=== PATIENT | male | born 1970 | race Caucasian/White ===

== ENCOUNTER → 2018-01-16 | Outpatient (CLI) | payer OTHER ==
[2018-01-16] MEDS: IOHEXOL 300 MG/ML 100ML VIAL. IV (11:21)
== END | disposition home or self-care (01) ==
LOC: KCIC CT 10:27
DX: R91.8 Other nonspecific abnormal finding of lung field (principal); K76.0 Fatty (change of) liver, not elsewhere classified
CPT/HCPCS: 71260; Q9967

== ENCOUNTER → 2018-03-22 | Outpatient (CLI) | payer OTHER | END | disposition home or self-care (01) | LOC: KCIC US 15:07 | DX: R10.31 Right lower quadrant pain (principal); R59.1 Generalized enlarged lymph nodes | CPT/HCPCS: 76881 ==

== ENCOUNTER → 2018-04-11 | Outpatient (CLI) | payer OTHER ==
[~2018-04-11] MED LIST: CONTRAST GIVEN. MC
[2018-04-11] MEDS: IOHEXOL 300 MG/ML 100ML VIAL. IV (10:15)
[2018-04-11] MEDS: IOHEXOL 240 MG/ML 50ML VIAL. PO (10:15)
== END | disposition home or self-care (01) ==
LOC: CT 10:00
DX: K76.0 Fatty (change of) liver, not elsewhere classified (principal); I10 Essential (primary) hypertension
CPT/HCPCS: 74177; Q9966; Q9967

== ENCOUNTER 2019-07-27 17:15 | Inpatient (IN) | payer OTHER ==
[~2019-07-27] VITALS: Ht 177.8 cm; Wt 104.8 kg
[~2019-07-27 17:15] MED LIST changes: +AMLO10TA8 PO; +AMOX500C PO; +ASPI-482 PO; +ASPI1TAB31 PO; +CHOL500016 PO; +CIPR500T94 PO; -CONTRAST GIVEN. MC; +HYDR-2761 PO; +IBUPROFEN PO; +LISI1TAB19 PO; +PHEN-444 PO; +SIMV10TA3 PO; +UBID100C26 PO
[2019-07-27] MEDS ORDERED: IV NORMAL SALINE 1000ML BAG 1,000 ML IV SCH (17:29)
[2019-07-27] MEDS: fentaNYL PF VIAL 100 MCG/2 ML VIAL IV PRN ×7 (17:43→23:09)
--- NOTE | 2019-07-27 17:50 | RAD ---
PORTABLE CHEST 1V Clinical indications: Fever. COMPARISON: None available. Findings: No acute lung infiltrate or pleural effusion or pulmonary edema or lung mass or pneumothorax is seen. The heart size, pulmonary vasculature, mediastinum and both duane are unremarkable. Impression: No acute radiographic abnormality is seen. Electronically signed by: Nick Stewart MD (07/27/2019 5:47 PM) [facility]
[2019-07-27 17:53] LABS: BASO % 0 % (0-3); EOS % 0 % (0-3); HEMATOCRIT 46.5 % (39.0-53.0); HEMOGLOBIN 16.1 g/dL (13.0-17.5); LYMPH # 0.5 x10^3/uL (1.0-4.8); LYMPH % 4 % (24-48); MEAN CORPUSCULAR HEMOGLOBIN 31 pg (25-35); MEAN CORPUSCULAR HGB CONC 35 g/dL (31-37); MEAN CORPUSCULAR VOLUME 90 fL (79-100); MONO # 0.9 x10^3/uL (0.0-1.1); MONO % 7 % (0-9); NEUT # 10.6 x10^3/uL (1.8-7.7); NEUT % 88 % (31-73); PLATELET COUNT 324 x10^3/uL (140-400); RED CELL DISTRIBUTION WIDTH 13.5 % (11.5-14.5)
--- NOTE | 2019-07-27 17:57 | PHYS DOC ---
Past Medical History Past Medical History: Kidney Infection Additional Past Medical Histor: BACTERIAL SPINAL MENNIGITIS,MULTIPLE KIDNEY STONES Past Surgical History: Appendectomy Additional Past Surgical Histo: MULTIPLE KIDNEY STONES REMOVED SURGICALLY Alcohol Use: Occasionally Drug Use: None Adult General Chief Complaint Chief Complaint: DIZZY/LIGHT HEADED HPI HPI Patient is a 49 year old male who presents with this morning at 9:00 began feeling very dizzy, headache, nauseated, slight left-sided chest pain, fever. Patient is 15 days out from a gastric sleeve surgery was performed at [facility]. Patient states his urine is very dark and he has not been urinating a lot. Patient denies pain with urination. Patient states that he is wondering if he has a kidney stone stuck in the left ureter. Patient states he has many kidney stones. Patient has 5 incisions to his abdomen from the surgery that was done laparoscopically. Decisions have approximated edges and are together and there is no redness, swelling, drainage. Patient states he has pain at a 9 out of 10 in his left lower abdomen/pelvic area. Review of Systems Review of Systems Constitutional: fever or chills [] GI: LLQ abdominal pain, nausea, denies vomiting, bloody stools or diarrhea [] All other systems were reviewed and found to be within normal limits, except as documented in this note. Current Medications Current Medications Current Medications Medications (Trade) Dose Ordered Sig/Naldo Start Time Stop Time Status Last Admin Dose Admin Acetaminophen (Tylenol) 500 mg 1X ONCE 07/27/19 18:00 07/27/19 18:01 DC 07/27/19 18:19 500 MG Ceftriaxone Sodium (Rocephin) 1 gm 1X ONCE 07/27/19 19:00 07/27/19 19:02 DC 07/27/19 19:26 1 GM Fentanyl Citrate (Fentanyl 2ml Vial) 50 mcg PRN Q15MIN PRN 07/27/19 17:30 07/28/19 17:29 07/27/19 19:35 50 MCG Ondansetron HCl (Zofran) 4 mg 1X ONCE 07/27/19 18:30 07/27/19 18:31 DC 07/27/19 18:26 4 MG Sodium Chloride 1,000 ml @ 1,000 mls/hr 1X ONCE 07/27/19 19:00 07/27/19 19:59 07/27/19 19:25 1,000 MLS/HR Allergies Allergies Allergies Coded Allergies Type Severity Reaction Last Updated Verified Sulfa (Sulfonamide Antibiotics) Allergy Intermediate rash,itching on the arm,fever symptoms 05/28/15 Yes prochlorperazine Adverse Reaction Severe SEVERE VOMITTING 05/28/15 Yes Physical Exam Physical Exam Constitutional: Well developed, well nourished, no acute distress, non-toxic appearance. [] Eyes: PERRLA, EOMI, conjunctiva normal, no discharge. [] Cardiovascular:Heart rate regular rhythm, no murmur [] Lungs & Thorax: Bilateral breath sounds clear to auscultation [] Abdomen: Bowel sounds normal, soft, no tenderness, no masses, no pulsatile masses. [] Skin: Warm, dry, no erythema, no rash. [] Back: No tenderness, no CVA tenderness. [] Extremities: No tenderness, no cyanosis, no clubbing, ROM intact, no edema. [] Neurologic: Alert and oriented X 3, normal motor function, normal sensory function, no focal deficits noted. [] Psychologic: Affect normal, judgement normal, mood normal. [] Current Patient Data Vital Signs Vital Signs Date Time Temp Pulse Resp B/P (MAP) Pulse Ox O2 Delivery O2 Flow Rate FiO2 07/27/19 19:35 20 95 Room Air 07/27/19 17:21 102.2 160 116/76 (89) 102.2 Lab Values Laboratory Tests Test 07/27/19 17:40 07/27/19 17:50 07/27/19 19:00 White Blood Count 12.0 x10^3/uL (4.0-11.0) H Red Blood Count 5.20 x10^6/uL (4.30-5.70) Hemoglobin 16.1 g/dL (13.0-17.5) Hematocrit 46.5 % (39.0-53.0) Mean Corpuscular Volume 90 fL (79-100) Mean Corpuscular Hemoglobin 31 pg (25-35) Mean Corpuscular Hemoglobin Concent 35 g/dL (31-37) Red Cell Distribution Width 13.5 % (11.5-14.5) Platelet Count 324 x10^3/uL (140-400) Neutrophils (%) (Auto) 88 % (31-73) H Lymphocytes (%) (Auto) 4 % (24-48) L Monocytes (%) (Auto) 7 % (0-9) Eosinophils (%) (Auto) 0 % (0-3) Basophils (%) (Auto) 0 % (0-3) Neutrophils # (Auto) 10.6 x10^3/uL (1.8-7.7) H Lymphocytes # (Auto) 0.5 x10^3/uL (1.0-4.8) L Monocytes # (Auto) 0.9 x10^3/uL (0.0-1.1) Eosinophils # (Auto) 0.0 x10^3/uL (0.0-0.7) Basophils # (Auto) 0.0 x10^3/uL (0.0-0.2) Segmented Neutrophils % 76 % (35-66) H Band Neutrophils % 11 % (0-9) H Lymphocytes % 7 % (24-48) L Monocytes % 6 % (0-10) Platelet Estimate Adequate (ADEQUATE) Sodium Level 141 mmol/L (136-145) Potassium Level 3.7 mmol/L (3.5-5.1) Chloride Level 103 mmol/L (98-107) Carbon Dioxide Level 19 mmol/L (21-32) L Anion Gap 19 (6-14) H Blood Urea Nitrogen 11 mg/dL (8-26) Creatinine 1.1 mg/dL (0.7-1.3) Estimated GFR (Cockcroft-Gault) 71.8 BUN/Creatinine Ratio 10 (6-20) Glucose Level 92 mg/dL (70-99) Lactic Acid Level 1.2 mmol/L (0.4-2.0) Calcium Level 9.3 mg/dL (8.5-10.1) Total Bilirubin 0.7 mg/dL (0.2-1.0) Aspartate Amino Transferase (AST) 20 U/L (15-37) Alanine Aminotransferase (ALT) 32 U/L (16-63) Alkaline Phosphatase 63 U/L (46-116) Total Protein 7.6 g/dL (6.4-8.2) Albumin 3.7 g/dL (3.4-5.0) Albumin/Globulin Ratio 0.9 (1.0-1.7) L Urine Collection Type Unknown Urine Color Yellow Urine Clarity Clear Urine pH 5.5 Urine Specific [place] 1.020 Urine Protein Negative mg/dL (NEG-TRACE) Urine Glucose (UA) Negative mg/dL (NEG) Urine Ketones (Stick) >=80 mg/dL (NEG) Urine Blood Small (NEG) Urine Nitrite Negative (NEG) Urine Bilirubin Small (NEG) Urine Urobilinogen Dipstick 0.2 mg/dL (0.2 mg/dL) Urine Leukocyte Esterase Moderate (NEG) Urine RBC 3-5 /HPF (0-2) Urine WBC Tntc /HPF (0-4) Urine Bacteria 0 /HPF (0-FEW) Urine Mucus Marked /LPF Influenza Type A Antigen Negative (NEGATIVE) Influenza Type B Antigen Negative (NEGATIVE) Laboratory Tests 07/27/19 17:40 Laboratory Tests 07/27/19 17:40 EKG EKG Sinus Tachycardia and no STEMI[] Interpretation Time: [address] Cannon Radiology/Procedures Radiology/Procedures [] Impressions: [place] [address] IMAGING REPORT Signed PATIENT: LIZET OJEDA ACCOUNT: [id number] : 1970 LOCATION: ER AGE: 49 SEX: M EXAM STATUS: REG ER ORD. PHYSICIAN: YAMILET CANNON Jr. DO REASON: fever PROCEDURE: PORTABLE CHEST 1V PORTABLE CHEST 1V Clinical indications: Fever. COMPARISON: None available. Findings: No acute lung infiltrate or pleural effusion or pulmonary edema or lung mass or pneumothorax is seen. The heart size, pulmonary vasculature, mediastinum and both duane are unremarkable. Impression: No acute radiographic abnormality is seen. Electronically signed by: Nick Stewart MD (07/27/2019 5:47 PM) [facility] DICTATED and SIGNED BY: NICK STEWART MD DATE: 07/27/19 [address] [id number] IMAGING REPORT Signed PATIENT: LIZET OJEDA ACCOUNT: [id number] : 1970 LOCATION: ER AGE: 49 SEX: M EXAM STATUS: REG ER ORD. PHYSICIAN: COTY BRUCE APRN REASON: kidney stone hx PROCEDURE: CT ABDOMEN PELVIS WO CONTRAST EXAM: CT ABDOMEN/PELVIS WITHOUT CONTRAST. HISTORY: Renal stones. TECHNIQUE: Computed tomography of the abdomen and pelvis was performed without intravenous contrast. COMPARISON: 04/11/2019. FINDINGS: Lung windows through the visualized portions of the bases reveal a 4 mm uncalcified right middle lobe nodule, stable and likely benign. There is minimal dependent atelectasis. Bone windows reveal no suspicious lesions. There is a 2 mm calculus at the left ureterovesical junction. There is no hydronephrosis bilaterally. Multiple additional bilateral renal calculi measure up to 6 mm on the right. A dense mass in the right renal interpolar region measures 2.6 cm. There is mild perinephric stranding on the left. The liver, gallbladder, spleen, adrenal glands and pancreas are unremarkable. There are no pathologically enlarged lymph nodes. There are changes of sleeve gastrectomy. There is no small bowel obstruction. There is no evidence of appendicitis. IMPRESSION: 1. 2 mm left ureterovesical junction calculus with without hydronephrosis. 2. Multiple additional bilateral renal calculi measure up to 6 mm on the right. 3. A dense nodule in the right kidney is unchanged and most likely represents a hemorrhagic or proteinaceous cyst. Sonography could further differentiate cystic from solid lesions if there is persistent concern. *One or more of the following individualized dose reduction techniques were utilized for this examination: 1. Automated exposure control. 2. Adjustment of the mA and/or kV according to patient size. 3. Use of iterative reconstruction technique. Electronically signed by: George Bojorquez MD (07/27/2019 7:35 PM) [facility] DICTATED and SIGNED BY: KRIS BOJORQUEZ MD DATE: 07/27/191934 Course & Med Decision Making Course & Med Decision Making Patient is a 49 year old male who presents with this morning at 9:00 began feeling very dizzy, headache, nauseated, slight left-sided chest pain, fever. Patient is 15 days out from a gastric sleeve surgery was performed at [facility] by Dr. Chris Garg. Patient states his urine is very dark and he has not been urinating a lot. Patient denies pain with urination. Patient states that he is wondering if he has a kidney stone stuck in the left ureter. Patient states he has many kidney stones. Patient has 5 incisions to his abdomen from the surgery that was done laparoscopically. Decisions have approximated edges and are together and there is no redness, swelling, drainage. Patient states he has pain at a 9 out of 10 in his left lower abdomen/pelvic area. There is no tenderness to palpation. Alert and oriented. Skin pink warm and dry. Lungs are clear to auscultation all lobes. Abdomen is soft and nontender. No extremity swelling. Patient is tachycardic and no STEMI. Patient's heart rate is 139. Speaks in full clear sentences. PERRLA. Patient denies shortness of breath, numbness or tingling, visual changes, weaknesses. Patient states that he took 1 Excedrin migraine at 9:00 this morning and he took another at 1500. 1845: Patient states he is feeling better and his headache is better and very tolerable. Patient rates it at a 3 out of 10. Patient has a urinary tract infection of which I have ordered IV Rocephin. I have ordered a second bag of normal saline bolus. CT ABD PELV shows: 1. 2 mm left ureterovesical junction calculus with without hydronephrosis. 2. Multiple additional bilateral renal calculi measure up to 6 mm on the right. 3. A dense nodule in the right kidney is unchanged and most likely represents a hemorrhagic or proteinaceous cyst. Sonography could further differentiate cystic from solid lesions if there is persistent concern. I have spoken to Dr Asher for admission. He states to keep the patient hydrated and keep him on clear liquids. Dragon Disclaimer Dragon Disclaimer This electronic medical record was generated, in whole or in part, using a voice recognition dictation system. Departure Departure Impression: Primary Impression: Kidney stones Additional Impression: Urinary tract infection Disposition: ADMITTED INPATIENT Admitting Physician: Jhon Asher Condition: STABLE Referrals: SALMA DOLAN PA-C (PCP) Problem Qualifiers Additional Impression: Urinary tract infection Urinary tract infection type: site unspecified Hematuria presence: with hematuria Qualified Codes: N39.0 - Urinary tract infection, site not specified; R31.9 - Hematuria, unspecified COTY BRUCE ATTENDANT [employer] Jul 27, 2019 17:57
[2019-07-27] MEDS ORDERED: ACETAMINOPHEN 500 MG TABLET PO ONE ×2 (18:00)
[2019-07-27 18:04] LABS: CALCIUM 9.3 mg/dL (8.5-10.1); CREATININE 1.1 mg/dL (0.7-1.3); GFR 71.8; POTASSIUM 3.7 mmol/L (3.5-5.1)
[2019-07-27 18:10] LABS: ALBUMIN 3.7 g/dL (3.4-5.0); ALBUMIN/GLOBULIN RATIO 0.9 (1.0-1.7); TOTAL BILIRUBIN 0.7 mg/dL (0.2-1.0); TOTAL PROTEIN 7.6 g/dL (6.4-8.2)
[2019-07-27 18:21] LABS: BILIRUBIN,URINE SMALL (NEG); CLARITY,URINE CLEAR; COLOR,URINE YELLOW; NITRITE,URINE NEGATIVE (NEG); PH,URINE 5.5; PROTEIN,URINE NEGATIVE (NEG-TRACE); UROBILINOGEN,URINE 0.2 mg/dL (0.2 mg/dL)
[2019-07-27] MEDS ORDERED: ONDANSETRON PF 4 MG/2 ML VIAL. ONE (18:23)
[2019-07-27] MEDS ORDERED: ONDANSETRON PF 4 MG/2 ML VIAL. IV ONE (18:30)
[2019-07-27 18:48] LABS: BACTERIA,URINE 0 /HPF (0-FEW); WBC,URINE TNTC /HPF (0-4)
[2019-07-27] MEDS ORDERED: IV NORMAL SALINE 1000ML BAG 1,000 ML IV ONE (19:00)
[2019-07-27] MEDS ORDERED: cefTRIAXone IV Push 1 GM VIAL. IVP ONE (19:00)
[2019-07-27 19:38] LABS: INFLUENZA A PATIENT NEGATIVE (NEGATIVE); INFLUENZA B PATIENT NEGATIVE (NEGATIVE)
--- NOTE | 2019-07-27 19:38 | RAD ---
EXAM: CT ABDOMEN/PELVIS WITHOUT CONTRAST. HISTORY: Renal stones. TECHNIQUE: Computed tomography of the abdomen and pelvis was performed without intravenous contrast. COMPARISON: 04/11/2019. FINDINGS: Lung windows through the visualized portions of the bases reveal a 4 mm uncalcified right middle lobe nodule, stable and likely benign. There is minimal dependent atelectasis. Bone windows reveal no suspicious lesions. There is a 2 mm calculus at the left ureterovesical junction. There is no hydronephrosis bilaterally. Multiple additional bilateral renal calculi measure up to 6 mm on the right. A dense mass in the right renal interpolar region measures 2.6 cm. There is mild perinephric stranding on the left. The liver, gallbladder, spleen, adrenal glands and pancreas are unremarkable. There are no pathologically enlarged lymph nodes. There are changes of sleeve gastrectomy. There is no small bowel obstruction. There is no evidence of appendicitis. IMPRESSION: 1. 2 mm left ureterovesical junction calculus with without hydronephrosis. 2. Multiple additional bilateral renal calculi measure up to 6 mm on the right. 3. A dense nodule in the right kidney is unchanged and most likely represents a hemorrhagic or proteinaceous cyst. Sonography could further differentiate cystic from solid lesions if there is persistent concern. *One or more of the following individualized dose reduction techniques were utilized for this examination: 1. Automated exposure control. 2. Adjustment of the mA and/or kV according to patient size. 3. Use of iterative reconstruction technique. Electronically signed by: George Bojorquez MD (07/27/2019 7:35 PM) [facility]
[2019-07-27 19:39] LABS: % BANDS 11 % (0-9); % LYMPHS 7 % (24-48); % MONOS 6 % (0-10); % SEGS 76 % (35-66); PLT ESTIMATE ADEQUATE (ADEQUATE)
[2019-07-27] MEDS ORDERED: KETOROLAC 30 MG/ML VIAL. IV ONE (21:00)
--- NOTE | 2019-07-27 21:10 | NUR ---
The patient, LIZET OJEDA, 49 y/o, M admitted by EREN DUARTE MD, was given written information regarding hospital policies, unit procedures and contact persons. RN received report from Sirena CABA in ED at 2104, Patient was transported via gurney from ED to room 418 at 2109. RN performed a head to toe assessment at that time, BP 103/70 HR 112 Temp 99.2, and pain rated a 7/10 at the time. Bed is in lowest locked position and call light within reach. Valuables were checked and left in the room with the patient. RN will continue to monitor patient closely.
[2019-07-27 21:34] VITALS: BP 103/70
[2019-07-27] MEDS: IV NORMAL SALINE 1000ML BAG 1,000 ML IV SCH (21:35)
--- NOTE | 2019-07-27 22:50 | NUR ---
Patient triggered positive in the ED and here on the unit, LA was drawn 1.2 and 2 blood cultures. RN spoke to ICU and Dr. Asher. No additional orders at this time.
[2019-07-27 23:00] VITALS: BP 118/49
[2019-07-27] MEDS: ONDANSETRON PF 4 MG/2 ML VIAL. IV PRN (23:09)
[2019-07-27] MEDS: ACETAMINOPHEN 325 MG TABLET. PO PRN (23:10)
[2019-07-28] VITALS (10 sets, daily range): BP systolic 99–136; BP diastolic 64–82
[2019-07-28] MEDS ORDERED: LISI-334 PO (01:56)
[2019-07-28] MEDS: fentaNYL PF VIAL 100 MCG/2 ML VIAL IV PRN ×9 (02:00→18:44)
[2019-07-28] MEDS: ACETAMINOPHEN 325 MG TABLET. PO PRN ×2 (03:36→12:53)
[2019-07-28] MEDS: KETOROLAC 30 MG/ML VIAL. IV PRN ×4 (03:58→22:38)
[2019-07-28] MEDS: IV NORMAL SALINE 1000ML BAG 1,000 ML IV SCH ×2 (05:57→15:57)
--- NOTE | 2019-07-28 08:38 | PDOC ---
Provider Note Provider Note [id number] EREN DUARTE MD Jul 28, 2019 08:38
--- NOTE | 2019-07-28 08:48 | HP ---
ADMIT DATE: 07/27/2019 CHIEF COMPLAINT: Fever and chills. HISTORY OF PRESENT ILLNESS: A 49-year-old white male with longstanding recurrent calcium based urinary stones, has had left flank pain for about 2 weeks that he felt was a stone. He developed symptoms of infection being fever, headache, chills, worsening malaise and pain about a day prior to admission and came to the ER. Urine showed evidence of infection. CT showed a 2 mm UVJ stone without hydronephrosis and he was given IV Rocephin and fluids and feels somewhat better at this time. He takes potassium citrate as a stone prophylaxis and has seen Dr. Cazares in the past. He has had multiple stone interventions including multiple lithotripsies and he has had 4 ureteral stents on the left side, but most recently about 3 years ago. PAST MEDICAL HISTORY: He had gastric sleeve surgery 2 weeks ago. He has been off his blood pressure medication since then. ALLERGIES: HE IS ALLERGIC TO SULFA AND COMPAZINE. PAST SURGICAL HISTORY: He has had orthopedic surgeries as his only other medical problems. SOCIAL HISTORY: , physically active, nonsmoker employed. FAMILY HISTORY: Unremarkable. No history of stone disease. REVIEW OF SYSTEMS: Negative. OBJECTIVE: ENT: All within normal limits. NECK: No masses, nodes or bruits. LUNGS: Clear. CARDIOVASCULAR: Regular rate. Heart rate 100. No murmur. ABDOMEN: Soft, benign and nontender. BACK: Minimally tender to percussion over the left flank. Right side, benign. EXTREMITIES: Unremarkable. Good pedal and radial pulses. No joint or skin lesions. NEUROLOGIC: Physiologic, nonfocal, oriented x 4. ASSESSMENT: Likely pyelonephritis, left-sided secondary to distal left ureteral stone. Calcium base by history. He has been on amoxicillin after his gastric sleeve and ran out 2 days ago. Blood pressures down regarding recent gastric sleeve and perhaps sepsis syndrome. PLAN: Continue IV fluid support. Hold home meds, IV Rocephin pending culture. Pureed diet for his gastric sleeve, urologic consultation and add Flomax. He may have urethral stricture from prior stents and so it may require intervention. EREN DUARTE MD DR: LUIS M/agustín JOB#: [id number] / [id number]
[2019-07-28] MEDS: HYDROmorphone 2 MG/ML VIAL IVP PRN ×3 (09:31→21:22)
[2019-07-28] MEDS: TAMSULOSIN 0.4 MG CAP.ER.24H. PO SCH (09:32)
[2019-07-28] MEDS: POTASSIUM CL 20MEQ D5-0.9%NACL 1,000 ML IV SCH ×2 (09:33→21:36)
[2019-07-28] MEDS: ONDANSETRON PF 4 MG/2 ML VIAL. IV PRN ×2 (09:39→21:22)
[2019-07-28] MEDS: cefTRIAXone IV Push 1 GM VIAL. IVP SCH (11:35)
--- NOTE | 2019-07-28 11:37 | EKG ---
[facility] [address] [place] [address] Test Date: 2019-07-27 Test Time: 17:27:42 Pat Name: LIZET OJEDA Department: Room: 418 1 Gender: M [employer] Wagon Hostess: JEFF : 1970 Requested By: YAMILET OSUNA Order Number: [id number] Reading MD: Lane Canas MD Measurements Intervals [place] Rate: 139 P: 29 NE: 148 QRS: -8 QRSD: 76 T: 38 QT: 268 QTc: 412 Interpretive Statements SINUS TACHYCARDIA CONSIDER INFERIOR INFARCT Electronically Signed On 08-06-2019 10:25:[address] Canas MD
--- NOTE | 2019-07-28 12:36 | PDOC2 ---
UROLOGY CONSULT Date of Consult Date of Consult DATE: 07/28/19 TIME: 12:24 Reason for Consult Reason for Consult: ureter stone Identification/Chief Complaint Chief Complaint fever, nausea Source Source: Chart review, Patient History of Present Illness Reason for Visit: 49 yo male presented to ER this AM with fever, headache, nausea. Initially tachycardic in ER. His oral intake has been limited due to recent gastric surgery. Also some mild LLQ pain. CT showed 2 mm distal left ureter stone without hydronephrosis, multiple bilateral kidney stones. UA with leukocytes, no bacteria. Creatinine, lactic acid normal. WBC slightly elevated (12.0k) Patient has passed many stone in the past. His urologist is Dr. Cazares. Patient is s/p laparoscopic gastric sleeve procedure at [facility] on 07/13/19. Past Medical History Pulmonary: No pertinent hx GI: No pertinent hx Renal/: Other (kidney stones) Past Surgical History Past Surgical History: Other (gastric sleeve Jun 2019) Family History Family History: No Significant Social History No Drugs: None Lives: with Family Current Medications Current Medications Current Medications Acetaminophen (Tylenol) 500 mg 1X ONCE PO Last administered on 07/27/19at 18:19; Start 07/27/19 at 18:00; Stop 07/27/19 at 18:01; Status DC Acetaminophen (Tylenol) 650 mg PRN Q4HRS PRN PO FEVER Last administered on 07/28/19at 03:36; Start 07/27/19 at 20:00; Stop 07/28/19 at 19:59 Acetaminophen (Tylenol) 1,000 mg 1X ONCE PO ; Start 07/27/19 at 18:00; Stop at 18:01; Status Cancel Ceftriaxone Sodium (Rocephin) 1 gm 1X ONCE IVP Last administered on 07/27/19at 19:26; Start 07/27/19 at 19:00; Stop 07/27/19 at 19:02; Status DC Ceftriaxone Sodium (Rocephin) 1 gm Q24H IVP Last administered on 07/28/19at 11 :35; Start 07/28/19 at 12:00 Fentanyl Citrate (Fentanyl 2ml Vial) 50 mcg PRN Q15MIN PRN IV PAIN GREATER THAN 3/10 Last administered on 07/27/19at 19:10; Start 07/27/19 at 17:30; Stop 07/28/19 at 17:29 Fentanyl Citrate (Fentanyl 2ml Vial) 50 mcg PRN Q1HR PRN IV PAIN Last administered on 07/28/19at 11:35; Start 07/27/19 at 20:00; Stop 07/28/19 at 19:59 Hydromorphone HCl (Dilaudid) 0.4 mg PRN Q4HRS PRN IVP PAIN Last administered on 07/28/19at 09:31; Start 07/28/19 at 08:15 Ketorolac Tromethamine (Toradol 30mg Vial) 30 mg 1X ONCE IV Last administered on 07/27/19at 20:31; Start 07/27/19 at 21:00; Stop 07/27/19 at 21:01; Status DC Ketorolac Tromethamine (Toradol 30mg Vial) 30 mg PRN Q6HRS PRN IV MODERATE PAIN 4-6 Last administered on 07/28/19at 10:04; Start 07/28/19 at 03:45; Stop 08/02/19 at 03:44 Ondansetron HCl (Zofran) 4 mg 1X ONCE IV Last administered on 07/27/19at 18:26; Start 07/27/19 at 18:30; Stop 07/27/19 at 18:31; Status DC Ondansetron HCl (Zofran) 4 mg PRN Q8HRS PRN IV NAUSEA/VOMITING Last administ ered on 07/28/19at 09:39; Start 07/27/19 at 20:00; Stop 07/28/19 at 19:59 Ondansetron HCl (Zofran) 4 mg STK-MED ONCE .ROUTE ; Start 07/27/19 at 18:23; Stop 07/27/19 at 18:23; Status DC Potassium Chloride/Dextrose/ Sod Cl 1,000 ml @ 100 mls/hr Q10H IV Last administered on 07/28/19at 09:33; Start 07/28/19 at 08:15 Sodium Chloride 1,000 ml @ 100 mls/hr Q10H IV Last administered on 07/27/19at 21:35; Start 07/27/19 at 19:57; Stop 07/28/19 at 19:56 Sodium Chloride 1,000 ml @ 1,000 mls/hr 1X ONCE IV Last administered on 07/27/19at 19:25; Start 07/27/19 at 19:00; Stop 07/27/19 at 19:59; Status DC Sodium Chloride 1,000 ml @ 1,000 mls/hr Q1H IV Last administered on 07/27/19at 17:49; Start 07/27/19 at 17:29; Stop 07/27/19 at 18:28; Status DC Tamsulosin HCl (Flomax) 0.4 mg DAILY PO Last administered on 07/28/19at 09:32; Start 07/28/19 at 09:00 Allergies Allergies: Coded Allergies: Sulfa (Sulfonamide Antibiotics) (Verified Allergy, Intermediate, rash,itching on the arm,fever symptoms, 05/28/15) prochlorperazine (Verified Adverse Reaction, Severe, SEVERE VOMITTING, 05/28/15) ROS Review Of Systems: Except as noted in HPI: CONSTITUTIONAL: + chills EYES: No recent changes SKIN: No rash or itching CARDIOVASCULAR: No chest pain, syncope, palpitations, or edema RESPIRATORY: No SOB or cough GASTROINTESTINAL: No nausea, vomiting or abdominal pain NEUROLOGICAL: No headaches or weakness ENDOCRINE: No cold or heat intolerance GENITOURINARY: No urgency or frequency of urination MUSCULOSKELETAL: No back pain or joint pain LYMPHATICS: No enlarged lymph nodes PSYCHIATRIC: No anxiety or depression Physical Exam Physical Exam: General: Pleasant, no acute distress, well groomed Eyes: conjunctiva anicteric, eyes full range of motion ENT: moist oral mucosa, normal dentition Neck: Trachea midline, no masses Respiratory: unlabored breathing, not using accessory muscles, no crackles or wheezes Cardiovascular: Regular rate and rhythm, no peripheral edema Abdomen: nontender, nondistended, no hepatosplenomegaly, no masses Skin: no rashes or skin lesions on visualized skin Psych: normal mood, affect. Alert and oriented x 3. Vitals VITALS Vital Signs Date Time Temp Pulse Resp B/P (MAP) Pulse Ox O2 Delivery O2 Flow Rate FiO2 07/28/19 10:03 Room Air 07/28/19 09:54 99.6 99.6 07/28/19 07:10 89 18 99/64 (76) 96 Labs Labs Laboratory Tests Test 07/27/19 17:40 07/27/19 17:50 07/27/19 19:00 White Blood Count 12.0 x10^3/uL (4.0-11.0) Red Blood Count 5.20 x10^6/uL (4.30-5.70) Hemoglobin 16.1 g/dL (13.0-17.5) Hematocrit 46.5 % (39.0-53.0) Mean Corpuscular Volume 90 fL (79-100) Mean Corpuscular Hemoglobin 31 pg (25-35) Mean Corpuscular Hemoglobin Concent 35 g/dL (31-37) Red Cell Distribution Width 13.5 % (11.5-14.5) Platelet Count 324 x10^3/uL (140-400) Neutrophils (%) (Auto) 88 % (31-73) Lymphocytes (%) (Auto) 4 % (24-48) Monocytes (%) (Auto) 7 % (0-9) Eosinophils (%) (Auto) 0 % (0-3) Basophils (%) (Auto) 0 % (0-3) Neutrophils # (Auto) 10.6 x10^3/uL (1.8-7.7) Lymphocytes # (Auto) 0.5 x10^3/uL (1.0-4.8) Monocytes # (Auto) 0.9 x10^3/uL (0.0-1.1) Eosinophils # (Auto) 0.0 x10^3/uL (0.0-0.7) Basophils # (Auto) 0.0 x10^3/uL (0.0-0.2) Segmented Neutrophils % 76 % (35-66) Band Neutrophils % 11 % (0-9) Lymphocytes % 7 % (24-48) Monocytes % 6 % (0-10) Platelet Estimate Adequate (ADEQUATE) Sodium Level 141 mmol/L (136-145) Potassium Level 3.7 mmol/L (3.5-5.1) Chloride Level 103 mmol/L (98-107) Carbon Dioxide Level 19 mmol/L (21-32) Anion Gap 19 (6-14) Blood Urea Nitrogen 11 mg/dL (8-26) Creatinine 1.1 mg/dL (0.7-1.3) Estimated GFR (Cockcroft-Gault) 71.8 BUN/Creatinine Ratio 10 (6-20) Glucose Level 92 mg/dL (70-99) Lactic Acid Level 1.2 mmol/L (0.4-2.0) Calcium Level 9.3 mg/dL (8.5-10.1) Total Bilirubin 0.7 mg/dL (0.2-1.0) Aspartate Amino Transf (AST/SGOT) 20 U/L (15-37) Alanine Aminotransferase (ALT/SGPT) 32 U/L (16-63) Alkaline Phosphatase 63 U/L (46-116) Total Protein 7.6 g/dL (6.4-8.2) Albumin 3.7 g/dL (3.4-5.0) Albumin/Globulin Ratio 0.9 (1.0-1.7) Urine Collection Type Unknown Urine Color Yellow Urine Clarity Clear Urine pH 5.5 Urine Specific [place] 1.020 Urine Protein Negative mg/dL (NEG-TRACE) Urine Glucose (UA) Negative mg/dL (NEG) Urine Ketones (Stick) >=80 mg/dL (NEG) Urine Blood Small (NEG) Urine Nitrite Negative (NEG) Urine Bilirubin Small (NEG) Urine Urobilinogen Dipstick 0.2 mg/dL (0.2 mg/dL) Urine Leukocyte Esterase Moderate (NEG) Urine RBC 3-5 /HPF (0-2) Urine WBC Tntc /HPF (0-4) Urine Bacteria 0 /HPF (0-FEW) Urine Mucus Marked /LPF Influenza Type A Antigen Negative (NEGATIVE) Influenza Type B Antigen Negative (NEGATIVE) Group A Streptococcus Rapid Negative (NEGATIVE) Laboratory Tests Test 07/27/19 17:40 07/27/19 17:50 07/27/19 19:00 White Blood Count 12.0 x10^3/uL (4.0-11.0) Red Blood Count 5.20 x10^6/uL (4.30-5.70) Hemoglobin 16.1 g/dL (13.0-17.5) Hematocrit 46.5 % (39.0-53.0) Mean Corpuscular Volume 90 fL (79-100) Mean Corpuscular Hemoglobin 31 pg (25-35) Mean Corpuscular Hemoglobin Concent 35 g/dL (31-37) Red Cell Distribution Width 13.5 % (11.5-14.5) Platelet Count 324 x10^3/uL (140-400) Neutrophils (%) (Auto) 88 % (31-73) Lymphocytes (%) (Auto) 4 % (24-48) Monocytes (%) (Auto) 7 % (0-9) Eosinophils (%) (Auto) 0 % (0-3) Basophils (%) (Auto) 0 % (0-3) Neutrophils # (Auto) 10.6 x10^3/uL (1.8-7.7) Lymphocytes # (Auto) 0.5 x10^3/uL (1.0-4.8) Monocytes # (Auto) 0.9 x10^3/uL (0.0-1.1) Eosinophils # (Auto) 0.0 x10^3/uL (0.0-0.7) Basophils # (Auto) 0.0 x10^3/uL (0.0-0.2) Segmented Neutrophils % 76 % (35-66) Band Neutrophils % 11 % (0-9) Lymphocytes % 7 % (24-48) Monocytes % 6 % (0-10) Platelet Estimate Adequate (ADEQUATE) Sodium Level 141 mmol/L (136-145) Potassium Level 3.7 mmol/L (3.5-5.1) Chloride Level 103 mmol/L (98-107) Carbon Dioxide Level 19 mmol/L (21-32) Anion Gap 19 (6-14) Blood Urea Nitrogen 11 mg/dL (8-26) Creatinine 1.1 mg/dL (0.7-1.3) Estimated GFR (Cockcroft-Gault) 71.8 BUN/Creatinine Ratio 10 (6-20) Glucose Level 92 mg/dL (70-99) Lactic Acid Level 1.2 mmol/L (0.4-2.0) Calcium Level 9.3 mg/dL (8.5-10.1) Total Bilirubin 0.7 mg/dL (0.2-1.0) Aspartate Amino Transf (AST/SGOT) 20 U/L (15-37) Alanine Aminotransferase (ALT/SGPT) 32 U/L (16-63) Alkaline Phosphatase 63 U/L (46-116) Total Protein 7.6 g/dL (6.4-8.2) Albumin 3.7 g/dL (3.4-5.0) Albumin/Globulin Ratio 0.9 (1.0-1.7) Urine Collection Type Unknown Urine Color Yellow Urine Clarity Clear Urine pH 5.5 Urine Specific [place] 1.020 Urine Protein Negative mg/dL (NEG-TRACE) Urine Glucose (UA) Negative mg/dL (NEG) Urine Ketones (Stick) >=80 mg/dL (NEG) Urine Blood Small (NEG) Urine Nitrite Negative (NEG) Urine Bilirubin Small (NEG) Urine Urobilinogen Dipstick 0.2 mg/dL (0.2 mg/dL) Urine Leukocyte Esterase Moderate (NEG) Urine RBC 3-5 /HPF (0-2) Urine WBC Tntc /HPF (0-4) Urine Bacteria 0 /HPF (0-FEW) Urine Mucus Marked /LPF Influenza Type A Antigen Negative (NEGATIVE) Influenza Type B Antigen Negative (NEGATIVE) Group A Streptococcus Rapid Negative (NEGATIVE) Assessment/Plan Assessment/Plan Left ureter stone: no hydronephrosis, does not meet SIRS criteria (WBC not > 12 k). Recommend IV hydration, broad spectrum antibiotics and close observation. Might need ureteral stent if not improving or if hydronephrosis develops. Hopefully he will pass the stone soon. Strain urine. Renal ultrasound to check for hydronpehrosis if not improving or rise in creatinine. LUIS SANTIAGO MD Jul 28, 2019 12:36
[2019-07-28] MEDS ORDERED: PROPOFOL 20 ML IV ONE (16:27)
[2019-07-28] MEDS ORDERED: LIDOCAINE 2% PF 5 ML VIAL. ONE (16:27)
[2019-07-28] MEDS ORDERED: fentaNYL PF VIAL 100 MCG/2 ML VIAL ONE ×2 (16:27→18:14)
[2019-07-28] MEDS ORDERED: IV RINGERS,LACTATED 1000ML 1,000 ML IV SCH (16:57)
[2019-07-28] MEDS ORDERED: fentaNYL PF VIAL 100 MCG/2 ML VIAL IV PRN (17:00)
[2019-07-28] MEDS ORDERED: LIDOCAINE 1% PF 2 ML VIAL. ID PRN (17:00)
[2019-07-28] MEDS ORDERED: HYDROmorphone 2 MG/ML VIAL IV PRN (17:00)
[2019-07-28] MEDS ORDERED: MORPHINE SULFATE 2 MG/ML VIAL. IV PRN (17:00)
[2019-07-28] MEDS ORDERED: IOHEXOL 300 MG/ML 50 ML VIAL. ONE (17:04)
[2019-07-28] MEDS ORDERED: DEXAMETHASONE SOD PHOS 4 MG/ML VIAL ONE (17:42)
[2019-07-28] MEDS ORDERED: SEVOFLURANE 16 TO 30 MINUTES. IH ONE (17:42)
[2019-07-28] MEDS ORDERED: ONDANSETRON PF 4 MG/2 ML VIAL. ONE (17:42)
[2019-07-28] MEDS ORDERED: CIPROFLOXACIN 400MG PREMIX 200 ML IV ONE (17:45)
--- NOTE | 2019-07-28 18:09 | PDOC4 ---
OPERATIVE NOTE Date: Date: Jul 28, 2019 Pre-Op Diagnosis: left ureter stone, fever Post-Op Diagnosis: same Procedure Performed: cystoscopy, left ureter stent placement, retrograde pyeleogram Surgeon: Luis Santiago MD Anesthesia Type: general Blood Loss: 0 Specimans Obtained: none Findings: normal appearing bladder. left ureteral jet present. normal retrograde pyelogram without hydronrphrosis or pyuria. Complications: none Operative Note: see dictation LUIS SANTIAGO MD Jul 28, 2019 18:09
--- NOTE | 2019-07-28 18:21 | OP ---
DATE OF SURGERY: 07/28/2019 SURGEON: Luis Santiago MD SUPERCHARGE REPAIR SUPERVISOR: None. PREOPERATIVE DIAGNOSIS: Left ureteral stone and fever. POSTOPERATIVE DIAGNOSIS: Left ureteral stone and fever. PROCEDURE PERFORMED: Cystoscopy with left ureteral stent placement and retrograde pyelogram. ANESTHESIA TYPE: General. DESCRIPTION OF PROCEDURE: This is a 49-year-old male who presented with fevers and chills and a left ureteral stone. After discussion of risks, benefits, and alternatives, he agreed to the above procedure. Informed consent was obtained. The patient was taken to the operating room and general anesthesia was induced. He was placed in dorsal lithotomy position, sterilely prepped and draped. A timeout was performed. A rigid cystoscope was advanced through the urethra and into the bladder. The bladder appeared unremarkable. Both ureteral orifices were visualized and clear urine was seen draining from both sides. The trigone of the bladder was closely inspected, and there were no duplicated ureters seen. The left ureteral orifice was cannulated with a guidewire and then the ureteral catheter up into the left renal pelvis. No urine drained from the stent, so a retrograde pyelogram was performed, which showed a normal left renal pelvis without hydronephrosis or filling defects. The guidewire was replaced. A 6 x 26 cm stent was then placed over the wire with curl noted in the renal pelvis and in the bladder on fluoroscopy. Clear contrast was seen draining through the stent. The patient was then awakened and taken to the recovery room in stable condition. BLOOD LOSS: None. COMPLICATIONS: None. SPECIMEN: None. LUIS SANTIAGO MD DR: KELLY/agustín JOB#: [id number] / [id number]
[2019-07-29] MEDS: HYDROmorphone 2 MG/ML VIAL IVP PRN ×3 (01:48→11:05)
[2019-07-29 03:16] VITALS: BP 104/66
[2019-07-29 07:00] VITALS: BP 127/69
--- NOTE | 2019-07-29 08:33 | PDOC ---
Provider Note Provider Note afeb since stent pacement- still pain fron stent- urine cult pending- cont iv fluid/rocep pending cult EREN DUARTE MD Jul 29, 2019 08:33
[2019-07-29] MEDS: KETOROLAC 30 MG/ML VIAL. IV PRN ×2 (08:50→19:14)
[2019-07-29] MEDS: POTASSIUM CL 20MEQ D5-0.9%NACL 1,000 ML IV SCH ×3 (08:50→19:22)
[2019-07-29] MEDS: TAMSULOSIN 0.4 MG CAP.ER.24H. PO SCH (08:51)
[2019-07-29] MEDS: ONDANSETRON PF 4 MG/2 ML VIAL. IV PRN (08:51)
--- NOTE | 2019-07-29 09:46 | PDOC ---
TORREY GUEVARA 07/29/19 0946: SUBJECTIVE Subjective Stent discomfort and body aches No fevers, chills, nausea, vomiting OBJECTIVE Objective Physical Exam Alert, NAD, Pleasant Unlabored breathing Abdomen TTP left quadrants. Incisions with glue from recent gastric surgery No CVAT Vital Signs Vital Signs Date Time Temp Pulse Resp B/P (MAP) Pulse Ox O2 Delivery O2 Flow Rate FiO2 07/29/19 03:16 98.0 61 20 104/66 (79) 95 Room Air 98.0 07/28/19 23:09 98.6 74 20 124/79 (94) 91 Room Air 98.6 07/28/19 21:30 75 123/76 (92) 07/28/19 21:00 71 20 127/75 (92) 91 Room Air 07/28/19 19:00 98.6 86 20 111/71 (84) 93 Room Air 98.6 07/28/19 18:48 98.2 100 20 115/65 98 Room Air 98.2 07/28/19 18:44 20 99 Room Air 07/28/19 18:34 110 20 109/76 93 Room Air 07/28/19 18:28 50 96 Simple Mask 18.0 07/28/19 18:19 103 20 109/74 97 Simple Mask 10 07/28/19 18:04 98.1 100 20 100/70 98 Simple Mask 10 98.1 07/28/19 18:04 Mask 10 07/28/19 16:34 99.9 98 32 136/80 (98) 97 Room Air 99.9 07/28/19 16:30 Room Air 07/28/19 15:14 92 Room Air 07/28/19 15:12 102.4 112 16 106/82 (90) 92 Room Air 102.4 07/28/19 15:07 Room Air 07/28/19 14:14 100.3 103 16 112/82 (92) 94 Room Air 100.3 07/28/19 14:12 Room Air 07/28/19 14:11 Room Air 07/28/19 12:54 100.1 101 22 128/72 (90) 97 Room Air 100.1 07/28/19 12:47 Room Air 07/28/19 12:46 Room Air 07/28/19 10:03 Room Air 07/28/19 09:54 99.6 99.6 I & O Intake and Output 9/30/19 07:00 Intake Total 1000 ml Output Total 1260 ml Balance -260 ml Intake Oral 50 ml IV Total 950 ml Output Urine Total 1250 ml Estimated Blood Loss 10 ml # Voids 4 # Bowel Movements 1 ASSESSMENT/PLAN Assessment/Plan S/p URS and stent placement for 2mm left distal ureter stone Urine culture pending Outpatient f/u with Dr. Santiago at [place]: 08/08/19 @ 11:10am LUIS SANTIAGO MD 07/31/19 1709: ASSESSMENT/PLAN Assessment/Plan Agree with assessment and plan. TORREY GUEVARA Jul 29, 2019 09:46 LUIS SANTIAGO MD Jul 31, 2019 17:09
[2019-07-29 11:00] VITALS: BP 100/59
[2019-07-29] MEDS: cefTRIAXone IV Push 1 GM VIAL. IVP SCH (11:08)
[2019-07-29] MEDS: HYDROcodone/APAP 7.5/325MG 1 TAB TABLET PO PRN ×3 (13:40→22:49)
[2019-07-29] MEDS: POLYETHYLENE GLYCOL 3350 17 GM PACKET. PO SCH (13:40)
[2019-07-29 15:00] VITALS: BP 110/62
--- NOTE | 2019-07-29 16:11 | NUR ---
SS following for discharge planning. SS reviewed pt chart. Pt is from home and is currently on room air. No discharge needs noted at this time. SS will continue to follow for discharge planning.
[2019-07-29 19:00] VITALS: BP 107/70
[2019-07-29] MEDS: ONDANSETRON PF 4 MG/2 ML VIAL. IVP PRN (19:14)
[2019-07-29] MEDS: LACTOBACILLUS RHAMNOSUS GG 1 CAPSULE. PO SCH (21:43)
[2019-07-29 23:00] VITALS: BP 115/73
[2019-07-30 03:00] VITALS: BP 111/63
[2019-07-30] MEDS: KETOROLAC 30 MG/ML VIAL. IV PRN ×3 (03:09→23:42)
[2019-07-30] MEDS: HYDROcodone/APAP 7.5/325MG 1 TAB TABLET PO PRN ×5 (03:09→21:41)
[2019-07-30] MEDS: POTASSIUM CL 20MEQ D5-0.9%NACL 1,000 ML IV SCH (05:08)
[2019-07-30 07:00] VITALS: BP 127/83
[2019-07-30] MEDS: TAMSULOSIN 0.4 MG CAP.ER.24H. PO SCH (08:12)
[2019-07-30] MEDS: LACTOBACILLUS RHAMNOSUS GG 1 CAPSULE. PO SCH ×2 (08:12→21:39)
[2019-07-30] MEDS: POLYETHYLENE GLYCOL 3350 17 GM PACKET. PO SCH (08:13)
[2019-07-30] MEDS: ONDANSETRON PF 4 MG/2 ML VIAL. IVP PRN ×2 (08:13→17:18)
--- NOTE | 2019-07-30 08:47 | PDOC ---
Provider Note Provider Note no temp 48 hrs, feels a little better - urine cult pending to asses po med need- dc iv fluid, cont rocep until culture back EREN DUARTE MD Jul 30, 2019 08:47
[2019-07-30] MEDS ORDERED: FLU VAX QS 2019-20 (36MOS+)/PF 0.5 ML SYRINGE. VAX IM ONE (09:00)
[2019-07-30 11:00] VITALS: BP 115/65
[2019-07-30] MEDS: cefTRIAXone IV Push 1 GM VIAL. IVP SCH (12:18)
[2019-07-30 15:00] VITALS: BP 142/85
[2019-07-30 19:00] VITALS: BP 132/85
[2019-07-30 23:00] VITALS: BP 125/84
[2019-07-31] MEDS: HYDROcodone/APAP 7.5/325MG 1 TAB TABLET PO PRN ×4 (02:11→19:09)
[2019-07-31 03:00] VITALS: BP 123/81
--- NOTE | 2019-07-31 03:25 | NUR ---
Patient spiked a fever of 101.[address] Asher called and orders received.
[2019-07-31] MEDS: MEROPENEM 1 GM in IV NORMAL SALINE 100ML 100 ML IV SCH ×2 (04:18→14:12)
[2019-07-31] MEDS: HYDROmorphone 2 MG/ML VIAL IVP PRN ×3 (04:25→17:47)
[2019-07-31] MEDS: ONDANSETRON PF 4 MG/2 ML VIAL. IVP PRN ×3 (06:16→17:51)
[2019-07-31] MEDS: KETOROLAC 30 MG/ML VIAL. IV PRN ×3 (06:18→19:29)
[2019-07-31 07:00] VITALS: BP 120/78
[2019-07-31] MEDS: TAMSULOSIN 0.4 MG CAP.ER.24H. PO SCH (08:35)
[2019-07-31] MEDS: LACTOBACILLUS RHAMNOSUS GG 1 CAPSULE. PO SCH ×2 (08:35→19:28)
[2019-07-31] MEDS: POLYETHYLENE GLYCOL 3350 17 GM PACKET. PO SCH (08:35)
--- NOTE | 2019-07-31 08:54 | PDOC ---
Provider Note Provider Note spiked another temp last pm, still weak and tachy- despite rocephin but no urine cult yet available- recultured and switch to meropenem for bettr gram neg coverage- labs, ID consult for input EREN DUARTE MD Jul 31, 2019 08:54
[2019-07-31 09:04] LABS: CALCIUM 9.1 mg/dL (8.5-10.1); GFR 80.1; POTASSIUM 3.8 mmol/L (3.5-5.1)
[2019-07-31 09:18] LABS: BASO # 0.1 x10^3/uL (0.0-0.2); BASO % 1 % (0-3); EOS # 0.2 x10^3/uL (0.0-0.7); EOS % 2 % (0-3); HEMATOCRIT 43.7 % (39.0-53.0); HEMOGLOBIN 14.6 g/dL (13.0-17.5); LYMPH # 1.1 x10^3/uL (1.0-4.8); LYMPH % 12 % (24-48); MEAN CORPUSCULAR HEMOGLOBIN 30 pg (25-35); MEAN CORPUSCULAR HGB CONC 33 g/dL (31-37); MEAN CORPUSCULAR VOLUME 91 fL (79-100); MONO # 1.1 x10^3/uL (0.0-1.1); MONO % 12 % (0-9); NEUT # 6.6 x10^3/uL (1.8-7.7); NEUT % 73 % (31-73); PLATELET COUNT 241 x10^3/uL (140-400); RED BLOOD COUNT 4.79 x10^6/uL (4.30-5.70); RED CELL DISTRIBUTION WIDTH 14.1 % (11.5-14.5)
[2019-07-31 11:00] VITALS: BP 137/69
--- NOTE | 2019-07-31 13:41 | PDOC ---
Infectious Disease Note Vital Sign Vital Signs Vital Signs Date Time Temp Pulse Resp B/P (MAP) Pulse Ox O2 Delivery O2 Flow Rate FiO2 07/31/19 11:57 99.6 99.6 07/31/19 11:00 86 18 137/69 (91) 92 Room Air 07/30/19 17:24 18.0 Labs Lab Laboratory Tests Test 07/31/19 03:54 White Blood Count 9.0 x10^3/uL (4.0-11.0) Red Blood Count 4.79 x10^6/uL (4.30-5.70) Hemoglobin 14.6 g/dL (13.0-17.5) Hematocrit 43.7 % (39.0-53.0) Mean Corpuscular Volume 91 fL (79-100) Mean Corpuscular Hemoglobin 30 pg (25-35) Mean Corpuscular Hemoglobin Concent 33 g/dL (31-37) Red Cell Distribution Width 14.1 % (11.5-14.5) Platelet Count 241 x10^3/uL (140-400) Neutrophils (%) (Auto) 73 % (31-73) Lymphocytes (%) (Auto) 12 % (24-48) Monocytes (%) (Auto) 12 % (0-9) Eosinophils (%) (Auto) 2 % (0-3) Basophils (%) (Auto) 1 % (0-3) Neutrophils # (Auto) 6.6 x10^3/uL (1.8-7.7) Lymphocytes # (Auto) 1.1 x10^3/uL (1.0-4.8) Monocytes # (Auto) 1.1 x10^3/uL (0.0-1.1) Eosinophils # (Auto) 0.2 x10^3/uL (0.0-0.7) Basophils # (Auto) 0.1 x10^3/uL (0.0-0.2) Sodium Level 141 mmol/L (136-145) Potassium Level 3.8 mmol/L (3.5-5.1) Chloride Level 104 mmol/L (98-107) Carbon Dioxide Level 29 mmol/L (21-32) Anion Gap 8 (6-14) Blood Urea Nitrogen 5 mg/dL (8-26) Creatinine 1.0 mg/dL (0.7-1.3) Estimated GFR (Cockcroft-Gault) 80.1 Glucose Level 97 mg/dL (70-99) Calcium Level 9.1 mg/dL (8.5-10.1) Micro Microbiology 07/27/19 Throat Culture - Final, Complete 07/27/19 - Final, Complete 07/27/19 Urine Culture - Final, Complete 07/27/19 Urine Culture Result 1 (MONIQUE) - Final, Complete 07/27/19 Antimicrobic Susceptibility - Final, Complete 07/27/19 Blood Culture - Preliminary, Resulted NO GROWTH AFTER 3 DAYS Objective Assessment Left-sided pyelonephritis, Enterococcus faecalis (PCN-S), 07/27 Fever Left ureteral stone s/p cystoscopy with left ureteral stent placement, 07/27 Sulfa allergy - swelled arm and rash Leukocytosis - improved Nephrolithiasis s/p lap gastric sleeve procedure, 07/13.at [facility] -2-wk post-op abx ? amoxicillin Plan Plan of Care Change to Zosyn with Enterococcus F/u labs and cults Thank you Attending Co-Sign Attending Co-Sign The patient was seen and interviewed as well as examined at the bedside. The chart was reviewed. The case was discussed. Agree with the plan of care. MYNOR LO APRN Jul 31, 2019 13:41 LEEROY CHO MD Jul 31, 2019 16:44
[2019-07-31 15:00] VITALS: BP 127/74
[2019-07-31] MEDS ORDERED: PIP/TAZO PER PHARMACY MC PRN (16:45)
[2019-07-31] MEDS: PIPERACILLIN/TAZOBACTAM 3.375 GM in IV NORMAL SALINE 50ML 50 ML IV SCH ×2 (17:49→23:28)
[2019-07-31 19:00] VITALS: BP 133/85
--- NOTE | 2019-07-31 19:08 | CONS ---
DATE OF CONSULTATION: 07/31/2019 Elder Mar, nurse practitioner, dictating for Dr. Leeroy Kimbrough, Infectious Disease. REQUESTING PHYSICIAN: Dr. Asher. REASON FOR CONSULTATION: Fever. HISTORY OF PRESENT ILLNESS: The patient is a 49-year-old male who presented to the ER on 07/27/2019 with complaints of fever, headache, nausea and left lower quadrant pain for 2 days' duration. He had recently undergone a laparoscopic gastric sleeve procedure on 07/13/2019 at [facility]. An abdominal/pelvis CT revealed a 2 mm left ureterovesical junction calculus without hydronephrosis. Multiple additional bilateral renal calculi measuring up to 6 mm on the right. A dense nodule in the right kidney is unchanged and most likely represents a hemorrhagic or proteinaceous cyst. He underwent an emergent cystoscopy and left ureter stent placement on the . Urinalysis showed wbc's too numerous to count, leukocyte esterase with growth of Enterococcus faecalis (penicillin sensitive). He was initially on ceftriaxone and later changed to meropenem due to ongoing fever. ID has been asked to consult for further evaluation and antibiotic management. The patient reports history of kidney stones. He completed a 2-week course of oral antibiotics after his gastric sleeve procedure. He believes it may have been amoxicillin. He says he is still not quite feeling very well. He complains of a headache and some upper back discomfort between shoulder blades as well as nausea. He denies vomiting, diarrhea or constipation. He reports having shakes earlier. PAST MEDICAL HISTORY: Kidney stones. Obesity. Hyperlipidemia, hypertension, history of DVT left leg, arthritis, seasonal allergies. PAST SURGICAL HISTORY: Cystoscopy with left ureteral stent placement and retrograde pyelogram on 07/28/2019. Appendectomy, vasectomy, laparoscopic gastric sleeve procedure at [facility] on 07/13/2019 and LASIK surgery. SOCIAL HISTORY: The patient lives at home. He is a corporate accountant. and nonsmoker. FAMILY HISTORY: Noncontributory. ALLERGIES: SULFA WITH SWELLING AND RASH. MEDICATIONS: Meropenem. Previously on ceftriaxone. He received a one-time dose of ciprofloxacin and dexamethasone on 07/28. Lortab, Dilaudid, Toradol, probiotics, Zofran, MiraLax, Flomax. REVIEW OF SYSTEMS: Per HPI, otherwise all other review of systems are negative. PHYSICAL EXAMINATION: VITAL SIGNS: Temperature 99.6, T-max 101.7, blood pressure 137/69, heart rate 86, respiratory rate 18, pulse oximetry 92% on room air. BMI is 33. GENERAL: The patient is propped up in bed, alert, no apparent distress. HEENT: Pupils equally round. Oropharynx pink and moist. NECK: Supple. LUNGS: Clear to auscultation. HEART: S1, S2. ABDOMEN: Obese, soft, nontender with bowel sounds present. Laparoscopic surgical incisions healing well and scabbed. BACK: Mild left CVAT. EXTREMITIES: No gross edema or cyanosis. SKIN: Warm to touch. No signs of rash. NEUROLOGIC: Alert and oriented x 3. LABORATORY DATA: Today's WBC 9.0 from 12.0, hemoglobin 14.6, platelets 241,000. Creatinine 1.0, BUN 5. Electrolytes are unremarkable. Total bilirubin 0.7, AST 20, ALT 32, albumin 3.7. Urinalysis and culture per HPI. Influenza screen and group A strep negative. Abdominal/pelvis CT also shows mild perinephric stranding on the left. Chest x-ray showed no acute radiographic abnormality. Blood cultures from the are negative to date. Repeat urine culture from 07/31 sent. IMPRESSION: 1. Left-sided pyelonephritis with growth of Enterococcus faecalis, penicillin sensitive from 07/27/2019. 2. Fever. 3. Left ureter stone, status post cystoscopy with left ureteral stent placement on 07/27/2019. 4. SULFA ALLERGY CAUSING SWELLING AND RASH. 5. Leukocytosis. 6. Nephrolithiasis. 7. Status post laparoscopic gastric sleeve procedure on 07/13/2019 at [facility]. PLAN: Recommend changing meropenem to Zosyn with Enterococcus. Labs have been ordered for the morning. We will follow up on culture results. Maintain hydration. Thank you, Dr. Asher, for asking us to participate in this patient's care. Should you have further questions or concerns, please call. The patient is seen and examined and plan of care implemented by Dr. Leeroy Kimbrough. LEEROY KIMBROUGH MD DR: AMAURY/agustín JOB#: [id number] / [id number]
[2019-07-31 23:00] VITALS: BP 96/58
[2019-08-01] VITALS (7 sets, daily range): BP systolic 120–143; BP diastolic 65–98
[2019-08-01] MEDS: HYDROcodone/APAP 7.5/325MG 1 TAB TABLET PO PRN ×3 (01:38→20:02)
[2019-08-01] MEDS: KETOROLAC 30 MG/ML VIAL. IV PRN ×3 (02:57→19:17)
[2019-08-01] MEDS: HYDROmorphone 2 MG/ML VIAL IVP PRN ×2 (04:12→18:40)
[2019-08-01] MEDS: PIPERACILLIN/TAZOBACTAM 3.375 GM in IV NORMAL SALINE 50ML 50 ML IV SCH ×3 (06:00→17:38)
[2019-08-01 07:09] LABS: BASO % 1 % (0-3); EOS # 0.2 x10^3/uL (0.0-0.7); EOS % 3 % (0-3); HEMATOCRIT 41.7 % (39.0-53.0); HEMOGLOBIN 14.3 g/dL (13.0-17.5); LYMPH # 1.1 x10^3/uL (1.0-4.8); LYMPH % 14 % (24-48); MEAN CORPUSCULAR HEMOGLOBIN 31 pg (25-35); MEAN CORPUSCULAR HGB CONC 34 g/dL (31-37); MEAN CORPUSCULAR VOLUME 90 fL (79-100); MONO # 1.4 x10^3/uL (0.0-1.1); MONO % 18 % (0-9); NEUT % 64 % (31-73); PLATELET COUNT 232 x10^3/uL (140-400); RED BLOOD COUNT 4.63 x10^6/uL (4.30-5.70); RED CELL DISTRIBUTION WIDTH 13.9 % (11.5-14.5); WHITE BLOOD COUNT 7.7 x10^3/uL (4.0-11.0)
[2019-08-01 07:28] LABS: GFR 80.1; POTASSIUM 3.5 mmol/L (3.5-5.1)
[2019-08-01] MEDS: POLYETHYLENE GLYCOL 3350 17 GM PACKET. PO SCH (08:29)
[2019-08-01] MEDS: LACTOBACILLUS RHAMNOSUS GG 1 CAPSULE. PO SCH ×2 (08:30→20:02)
[2019-08-01] MEDS: TAMSULOSIN 0.4 MG CAP.ER.24H. PO SCH (08:30)
--- NOTE | 2019-08-01 08:36 | PDOC ---
Provider Note Provider Note spiked to 102 12 hrs ago, but cbc/bmp ok- enteroccous per admit urine cult, now on zosyn- still mild L CVA tenderness only, looks nontoxic- cont iv med EREN DUARTE MD Aug 01, 2019 08:36
--- NOTE | 2019-08-01 08:57 | PDOC ---
TORREY GUEVARA 08/01/19 0857: SUBJECTIVE Subjective Pt had fevers the past two nights. Had headaches, body aches, worsening of stent irritation during fevers. States he feels somewhat better this morning. ID has seen pt and started zosyn. Ucx was entercoccus. WBC down to 7.7 this morning, creatinine stable at 1.0 OBJECTIVE Objective Physical Exam Alert, NAD, Pleasant Unlabored breathing Abdomen tender left quadrants, nondistended Mild left CVAT Vital Signs Vital Signs Date Time Temp Pulse Resp B/P (MAP) Pulse Ox O2 Delivery O2 Flow Rate FiO2 08/01/19 07:00 98.2 60 16 143/87 (105) 96 Room Air 98.2 08/01/19 04:42 Room Air 08/01/19 04:12 Room Air 08/01/19 03:00 Room Air 08/01/19 03:00 98.4 69 18 132/86 (101) 94 Room Air 98.4 08/01/19 01:38 Room Air 07/31/19 23:00 98.5 63 18 96/58 (71) 95 Room Air 98.5 07/31/19 21:10 99.4 99.4 07/31/19 19:55 16 94 Room Air 07/31/19 19:15 Room Air 07/31/19 19:09 Room Air 07/31/19 19:06 Room Air 07/31/19 19:00 102.2 86 18 133/85 (101) 98 Room Air 102.2 07/31/19 17:47 Room Air 07/31/19 15:00 99.3 74 18 127/74 (91) 94 Room Air 99.3 07/31/19 14:12 Room Air 07/31/19 11:57 99.6 99.6 07/31/19 11:00 100.2 86 18 137/69 (91) 92 Room Air 100.2 07/31/19 10:34 Room Air I & O Intake and Output 08/01/19 07:00 Intake Total 710 ml Balance 710 ml Intake Oral 560 ml IV Total 150 ml # Voids 2 ASSESSMENT/PLAN Assessment/Plan 4 days s/p URS and stent placement for 2mm left distal ureter stone Urine culture Enterococcus, ID managing abx Recent fevers, patient appears well this morning. Will continue to follow Keep outpatient f/u with Dr. Santiago at [facility]: 08/08/19 @ 11:10am COMMENT Lab Laboratory Tests Test 08/01/19 06:45 White Blood Count 7.7 x10^3/uL (4.0-11.0) Red Blood Count 4.63 x10^6/uL (4.30-5.70) Hemoglobin 14.3 g/dL (13.0-17.5) Hematocrit 41.7 % (39.0-53.0) Mean Corpuscular Volume 90 fL (79-100) Mean Corpuscular Hemoglobin 31 pg (25-35) Mean Corpuscular Hemoglobin Concent 34 g/dL (31-37) Red Cell Distribution Width 13.9 % (11.5-14.5) Platelet Count 232 x10^3/uL (140-400) Neutrophils (%) (Auto) 64 % (31-73) Lymphocytes (%) (Auto) 14 % (24-48) Monocytes (%) (Auto) 18 % (0-9) Eosinophils (%) (Auto) 3 % (0-3) Basophils (%) (Auto) 1 % (0-3) Neutrophils # (Auto) 5.0 x10^3/uL (1.8-7.7) Lymphocytes # (Auto) 1.1 x10^3/uL (1.0-4.8) Monocytes # (Auto) 1.4 x10^3/uL (0.0-1.1) Eosinophils # (Auto) 0.2 x10^3/uL (0.0-0.7) Basophils # (Auto) 0.0 x10^3/uL (0.0-0.2) Sodium Level 141 mmol/L (136-145) Potassium Level 3.5 mmol/L (3.5-5.1) Chloride Level 105 mmol/L (98-107) Carbon Dioxide Level 28 mmol/L (21-32) Anion Gap 8 (6-14) Blood Urea Nitrogen 11 mg/dL (8-26) Creatinine 1.0 mg/dL (0.7-1.3) Estimated GFR (Cockcroft-Gault) 80.1 Glucose Level 99 mg/dL (70-99) Calcium Level 9.0 mg/dL (8.5-10.1) LUIS SANTIAGO MD 08/01/19 1416: ASSESSMENT/PLAN Assessment/Plan Agree with assessment and plan. TORREY GUEVARA Aug 01, 2019 08:57 LUIS SANTIAGO MD Aug 01, 2019 14:16
--- NOTE | 2019-08-01 10:44 | PDOC ---
Infectious Disease Note Subjective Subjective Didn't sleep well last night + fever Some better this morning Ate little bit No BM nearly a week Has been walking Denies N/V/cramps ROS ROS per HPI Vital Sign Vital Signs Vital Signs Date Time Temp Pulse Resp B/P (MAP) Pulse Ox O2 Delivery O2 Flow Rate FiO2 08/01/19 07:00 98.2 60 16 143/87 (105) 96 Room Air 98.2 Physical Exam PHYSICAL EXAM GENERAL: Propped up in bed, alert, no apparent distress. HEENT: Pupils equally round. Oropharynx pink and moist. NECK: Supple. LUNGS: Clear to auscultation. HEART: S1, S2. ABDOMEN: Obese, soft, nontender with bowel sounds present. Laparoscopic surgical incisions healing well and scabbed. BACK: Mild left CVAT. EXTREMITIES: No gross edema or cyanosis. SKIN: Warm to touch. No signs of rash. NEUROLOGIC: Alert and oriented x 3. Labs Lab Laboratory Tests Test 08/01/19 06:45 White Blood Count 7.7 x10^3/uL (4.0-11.0) Red Blood Count 4.63 x10^6/uL (4.30-5.70) Hemoglobin 14.3 g/dL (13.0-17.5) Hematocrit 41.7 % (39.0-53.0) Mean Corpuscular Volume 90 fL (79-100) Mean Corpuscular Hemoglobin 31 pg (25-35) Mean Corpuscular Hemoglobin Concent 34 g/dL (31-37) Red Cell Distribution Width 13.9 % (11.5-14.5) Platelet Count 232 x10^3/uL (140-400) Neutrophils (%) (Auto) 64 % (31-73) Lymphocytes (%) (Auto) 14 % (24-48) Monocytes (%) (Auto) 18 % (0-9) Eosinophils (%) (Auto) 3 % (0-3) Basophils (%) (Auto) 1 % (0-3) Neutrophils # (Auto) 5.0 x10^3/uL (1.8-7.7) Lymphocytes # (Auto) 1.1 x10^3/uL (1.0-4.8) Monocytes # (Auto) 1.4 x10^3/uL (0.0-1.1) Eosinophils # (Auto) 0.2 x10^3/uL (0.0-0.7) Basophils # (Auto) 0.0 x10^3/uL (0.0-0.2) Sodium Level 141 mmol/L (136-145) Potassium Level 3.5 mmol/L (3.5-5.1) Chloride Level 105 mmol/L (98-107) Carbon Dioxide Level 28 mmol/L (21-32) Anion Gap 8 (6-14) Blood Urea Nitrogen 11 mg/dL (8-26) Creatinine 1.0 mg/dL (0.7-1.3) Estimated GFR (Cockcroft-Gault) 80.1 Glucose Level 99 mg/dL (70-99) Calcium Level 9.0 mg/dL (8.5-10.1) Micro 07/27/19 Blood Culture - Preliminary, Resulted NO GROWTH AFTER 4 DAYS THROAT CULT RESULT 1 Final Routine respiratory yolette URINE CULTURE RES 1 Final Enterococcus faecalis MICS are expressed in micrograms per mL Antibiotic RSLT#1 Ciprofloxacin S<=0.5 Levofloxacin S =0.5 Nitrofurantoin S<=16 Penicillin S =2 Tetracycline R>=16 Vancomycin S =1 Objective Assessment Left-sided pyelonephritis, Enterococcus faecalis (PCN-S), 07/27 Fever Left ureteral stone s/p cystoscopy with left ureteral stent placement, 07/27 Sulfa allergy Leukocytosis - improved Nephrolithiasis s/p lap gastric sleeve procedure, 07/13. -2-wk post-op abx ? amoxicillin Constipation Plan Plan of Care Continue Zosyn with Enterococcus Blood cultures neg so far Bowel regimen per primary, Supportive care C/o REID as has not been able to drink with constipation and discomfort Fever should improve now Will give 500 ml N/S MOM f/u cults Attending Co-Sign Attending Co-Sign The patient was seen and interviewed as well as examined at the bedside. The chart was reviewed. The case was discussed. Agree with the plan of care. MYNOR LO APRN Aug 01, 2019 10:44 LEEROY CHO MD Aug 01, 2019 17:37
[2019-08-01] MEDS: ONDANSETRON PF 4 MG/2 ML VIAL. IVP PRN (12:00)
--- NOTE | 2019-08-01 15:15 | NUR ---
SS following up with discharge planning. No discharge needs noted at this time. SS will continue to follow for discharge planning.
[2019-08-01] MEDS ORDERED: IV NORMAL SALINE 500ML BAG 500 ML IV ONE (17:30)
[2019-08-01] MEDS ORDERED: MAGNESIUM HYDROXIDE 2,400 MG/30 ML ORAL.SUSP. PO ONE (17:45)
[2019-08-01] MEDS ORDERED: ASA/APAP/CAFFEINE 250/250/65MG TABLET. PO PRN (21:15)
[2019-08-02] MEDS: PIPERACILLIN/TAZOBACTAM 3.375 GM in IV NORMAL SALINE 50ML 50 ML IV SCH ×3 (00:09→11:02)
[2019-08-02 03:26] VITALS: BP 113/62
[2019-08-02 07:00] VITALS: BP 135/88
[2019-08-02] MEDS: LACTOBACILLUS RHAMNOSUS GG 1 CAPSULE. PO SCH (08:21)
[2019-08-02] MEDS: POLYETHYLENE GLYCOL 3350 17 GM PACKET. PO SCH (08:22)
[2019-08-02] MEDS: TAMSULOSIN 0.4 MG CAP.ER.24H. PO SCH (08:22)
--- NOTE | 2019-08-02 09:13 | PDOC ---
Provider Note Provider Note feels better , velasquez ok after excedrin- wants to go home later today, last temp 36 hrs ago, told him ok after 6 more hours/ 1 dose zosyn if no more fever, then po amox EREN DUARTE MD Aug 02, 2019 09:13
[2019-08-02 11:00] VITALS: BP 117/82
--- NOTE | 2019-08-02 12:50 | PDOC ---
Infectious Disease Note Subjective Subjective Feels much better today and ready to return home + BM with dose MOM No further fever of chills last 24 hours Vital Sign Vital Signs Vital Signs Date Time Temp Pulse Resp B/P (MAP) Pulse Ox O2 Delivery O2 Flow Rate FiO2 08/02/19 11:00 98.4 87 16 117/82 (94) 95 Room Air 98.4 08/01/19 18:40 18.0 Physical Exam PHYSICAL EXAM GENERAL: In the chair, alert, smiling HEENT: Pupils equally round. Oropharynx pink and moist. NECK: Supple. LUNGS: Clear to auscultation. HEART: S1, S2. ABDOMEN: Obese, soft, nontender with bowel sounds present. EXTREMITIES: No gross edema or cyanosis. SKIN: Warm to touch. No signs of rash. NEUROLOGIC: Alert and oriented x 3. Labs Micro 07/27/19 Blood Culture - Preliminary, Resulted NO GROWTH AFTER 5 DAYS THROAT CULT RESULT 1 Final Routine respiratory yolette URINE CULTURE RES 1 Final Enterococcus faecalis MICS are expressed in micrograms per mL Antibiotic RSLT#1 Ciprofloxacin S<=0.5 Levofloxacin S =0.5 Nitrofurantoin S<=16 Penicillin S =2 Tetracycline R>=16 Vancomycin S =1 Objective Assessment Left-sided pyelonephritis, Enterococcus faecalis (PCN-S), 07/27 Fever Left ureteral stone s/p cystoscopy with left ureteral stent placement, 07/27 Sulfa allergy Leukocytosis - improved Nephrolithiasis s/p lap gastric sleeve procedure, 07/13. -2-wk post-op abx ? amoxicillin Constipation + BM Plan Plan of Care Gloria (since 07/31) Anticipating discharge home soon D/w jail on Am[facility] TID for 12 days to compete 2 weeks F/u Primary 08/05 and Urology 08/08 as scheduled Attending Co-Sign Attending Co-Sign The patient was seen and interviewed as well as examined at the bedside. The chart was reviewed. The case was discussed. Agree with the plan of care. MYNOR LO APRN Aug 02, 2019 12:50 LEEROY CHO MD Aug 02, 2019 15:00
--- NOTE | 2019-08-02 13:00 | DS ---
DATE OF DISCHARGE: 08/02/2019 HOSPITAL SUMMARY: The patient came in with left-sided flank pain, fever, and chills consistent with possible stone. He had a left distal 2-mm UVJ stone with no hydronephrosis seen. Urine showed evidence of infection and urine culture ultimately grew out Enterococcus sensitive to all antibiotics tested. Blood cultures had no growth. He was treated with IV Rocephin, but continued spiking temperatures led to a cystoscopy and left ureteral stent placement per Urology and he slowly improved after that. He was switched to Zosyn based on antibiotic testing and has not had fever for a little over 36 hours and feeling much better and comfortable, will be followed as an outpatient. FINAL DIAGNOSES: 1. Distal left ureteral stone. 2. Acute pyelonephritis secondary to obstructive uropathy. OPERATION PROCEDURES: Left ureteral stent placement. COMPLICATIONS: None. CONSULTATIONS: Dr. Shepard and Dr. White. DISPOSITION: He will use amoxicillin 500 mg 3 times a day for 1 more week to cover the enterococcus. Ibuprofen as needed for pain. Good fluid intake. Office followup with Urology in 1 week to have stent removed, and consider stone retrieval or lithotripsy with Dr. Duarte in 1-2 weeks in general followup. PROGNOSIS: Good. EREN DUARTE MD DR: LUIS M/agustín JOB#: [id number] / [id number]
--- NOTE | 2019-08-02 15:13 | NUR ---
Discharge Note: PT DISCHARGED HOME WITH SELF CARE. PT LEFT FACILITY VIA PRIVATE VEHICLE AT 1500, PT STABLE AND ALERT UPON DISCHARGE. PT PIV REMOVED FROM R FA WITHOUT COMPLICATIONS, BANDAGE APPLIED. PT EDUCATED ABOUT DISCHARGE INSTRUCTIONS, FOLLOW-UP INSTRUCTIONS, AND DISCHARGE ATB MEDICATIONS. PT VOICED NO CONCERNS AT THIS TIME. PT LEFT WITH ALL PERSONAL BELONGINGS. LIZET OJEDA Discharge instructions and discharge home medications reviewed with Patient and a copy given. All questions have been answered and understanding verbalized.
== END 2019-08-02 15:17 | disposition home or self-care (01) | DRG 660 ==
LOC: ER 17:15 → 4 NORTH 19:49
PROVIDERS: ADMIT Family Medicine; ATTEND Family Medicine
PROC: BT1F1ZZ Fluoroscopy of Left Kidney, Ureter and Bladder using Low Osmolar Contrast (ICD-10-PCS; 2019-07-28)
PROC: 0T778DZ Dilation of Left Ureter with Intraluminal Device, Via Natural or Artificial Opening Endoscopic (ICD-10-PCS; principal; 2019-07-28 16:50)
DX: N10 Acute pyelonephritis (principal); N20.2 Calculus of kidney with calculus of ureter; N13.8 Other obstructive and reflux uropathy; E78.5 Hyperlipidemia, unspecified; I10 Essential (primary) hypertension; K59.00 Constipation, unspecified; Z86.718 Personal history of other venous thrombosis and embolism; E66.9 Obesity, unspecified; Z87.442 Personal history of urinary calculi; Z88.2 Allergy status to sulfonamides; Z90.49 Acquired absence of other specified parts of digestive tract; M19.90 Unspecified osteoarthritis, unspecified site; Z68.33 Body mass index [BMI] 33.0-33.9, adult; Z79.899 Other long term (current) drug therapy
CPT/HCPCS: 36415; 71045; 74176; 76000; 80048; 80053; 81001; 83605; 85007; 85025; 87040; 87070; 87086; 87186; 87804; 87880; 93005; 96361; 96374; 96375; A7015; C1769; C2617; J0696; J0744; J1100; J1170; J1885; J2001; J2185; J2405; J2543; J2704; J3010; J7030; J7040; Q9967; 99285-25; G0378

== ENCOUNTER → 2021-08-06 | Outpatient (CLI) | payer OTHER ==
[~2021-08-06] MED LIST changes: +AMLO-187 PO; -AMLO10TA8 PO; -LISI1TAB19 PO; +LISI1TAB37 PO; +LISI20TA18 PO; +SIMV10TA15 PO; -SIMV10TA3 PO
== END ==
LOC: LAB 20:05
PROVIDERS: ATTEND Internal Medicine Pulmonary Disease
DX: R50.9 Fever, unspecified (principal); R43.0 Anosmia; Z20.822 Contact with and (suspected) exposure to COVID-19
CPT/HCPCS: 87426; U0003; U0005